=== PATIENT | female | born 1945 | race Caucasian/White ===

== ENCOUNTER 2020-05-21 13:03 | Outpatient (CLI) | payer OTHER, MEDICARE | END 2020-05-21 20:10 | disposition home or self-care (01) | LOC: SLB 13:03 | PROVIDERS: ATTEND Otolaryngology | DX: Z20.828 Contact with and (suspected) exposure to other viral communicable diseases (principal) | CPT/HCPCS: C9803; U0003 ==

== ENCOUNTER 2020-06-05 05:55 | Day surgery (SDC) | payer OTHER, MEDICARE, SELFPAY ==
[~2020-06-05] VITALS: Ht 167.6 cm; Wt 70.3 kg
[2020-06-05] MEDS ORDERED: OXYMETAZOLINE HCL 0.05% NASAL SPRAY NS ONE (07:30)
[2020-06-05] MEDS ORDERED: MIDAZOLAM HCL 5 MG/5 ML VIAL IVP ONE (07:30)
[2020-06-05] MEDS ORDERED: LR 1,000 ML IV.SOLN IV ONE (07:30)
[2020-06-05] MEDS ORDERED: SEVOFLURANE 15 MIN GAS INH ONE (07:30)
[2020-06-05] MEDS ORDERED: PROPOFOL 200MG/ 20ML VIAL (DIPRIVAN) IV ONE (07:30)
[2020-06-05] MEDS ORDERED: NS IRRIG SOLN 1000 ML IR ONE (07:30)
[2020-06-05] MEDS ORDERED: fentaNYL CITRATE/PF 100 MCG/2 ML AMP IVP PRN (08:15)
[2020-06-05] MEDS ORDERED: ONDANSETRON HCL 4 MG/2 ML VIAL IVP PRN (08:15)
[2020-06-05] MEDS: fentaNYL CITRATE/PF 100 MCG/2 ML AMP IVP PRN ×2 (08:42→08:52)
[2020-06-05] MEDS ORDERED: fentaNYL CITRATE/PF 100 MCG/2 ML AMP ONE (08:59)
[2020-06-05] MEDS ORDERED: ONDANSETRON HCL 4 MG/2 ML VIAL ONE (09:29)
[2020-06-05 12:45] VITALS: BP_SYST 110
== END 2020-06-05 11:50 | disposition home or self-care (01) ==
LOC: SMU 05:55 → SLB 05:55
PROVIDERS: ATTEND Otolaryngology
DX: S02.2XXA Fracture of nasal bones, initial encounter for closed fracture (principal); K21.9 Gastro-esophageal reflux disease without esophagitis; N95.1 Menopausal and female climacteric states; G47.33 Obstructive sleep apnea (adult) (pediatric); Z99.89 Dependence on other enabling machines and devices; W19.XXXA Unspecified fall, initial encounter; Y93.89 Activity, other specified; Y92.89 Other specified places as the place of occurrence of the external cause; Y99.8 Other external cause status; Z20.828 Contact with and (suspected) exposure to other viral communicable diseases
CPT/HCPCS: 21320; J2250; J2405; J2704; J3010; J7120; U0003

== ENCOUNTER 2023-11-03 08:28 | Day surgery (SDC) | payer OTHER, MEDICARE ==
[~2023-11-03] VITALS: Ht 167.6 cm; Wt 73.5 kg
[2023-11-03] MEDS ORDERED: CIPRO 0.3%/DEXAMETH 0.1% OTIC DRP 7.5 ML ONE (11:19)
[2023-11-03] MEDS ORDERED: ONDANSETRON HCL 4 MG/2 ML VIAL ONE (11:19)
[2023-11-03] MEDS ORDERED: LIDOCAINE 2%, 20 ML MDV ONE (11:19)
[2023-11-03] MEDS ORDERED: LR 1,000 ML IV.SOLN IV ONE (11:19)
[2023-11-03] MEDS ORDERED: OXYMETAZOLINE HCL 0.05% NASAL SPRAY NS ONE (11:19)
[2023-11-03] MEDS ORDERED: DEXAMETHASONE SOD PHOSPHATE 4 MG/ML VIAL ONE (11:19)
[2023-11-03] MEDS ORDERED: SEVOFLURANE 15 MIN GAS INH ONE (11:19)
[2023-11-03] MEDS ORDERED: MIDAZOLAM HCL 5 MG/ML VIAL (VERSED) IV ONE (11:19)
[2023-11-03] MEDS ORDERED: PROPOFOL 200MG/ 20ML VIAL (DIPRIVAN) IV ONE (11:19)
[2023-11-03 11:30] VITALS: O2SAT 97
[2023-11-03] MEDS ORDERED: MEPERIDINE HCL/PF 25 MG/ML DISP.SYRIN IVP PRN (12:00)
[2023-11-03] MEDS ORDERED: HYDROmorphone 1 MG/ML INJ. CARTRIDGE IVP PRN ×2 (12:00)
[2023-11-03] MEDS ORDERED: LR 1,000 ML IV SCH (12:00)
[2023-11-03 15:37] VITALS: BP_SYST 115; PULSE 85; RESP 16
== END 2023-11-03 14:15 | disposition home or self-care (01) ==
LOC: SDS 08:28 → SMU 08:40 → SDS 14:15
PROVIDERS: ATTEND Otolaryngology
DX: H65.02 Acute serous otitis media, left ear (principal); H65.22 Chronic serous otitis media, left ear; H90.3 Sensorineural hearing loss, bilateral; H68.101 Unspecified obstruction of Eustachian tube, right ear; K21.9 Gastro-esophageal reflux disease without esophagitis; N95.1 Menopausal and female climacteric states; E21.3 Hyperparathyroidism, unspecified; Z91.013 Allergy to seafood; Z90.79 Acquired absence of other genital organ(s); Z81.8 Family history of other mental and behavioral disorders
CPT/HCPCS: 69436; J1100; J2250; J2405; J2704; J7120; L8699; J2001